=== PATIENT | female | born 2000 | race African-American/Black ===

== ENCOUNTER 2023-11-03 08:47 | Emergency (ER) | payer OTHER, SELFPAY ==
--- NOTE | ~2023-11-03 | XR_ITS ---
XR chest 1V portable DATE: 11/03/2023 11:00 INDICATION: Facial swelling TECHNIQUE: Portable upright AP chest on November 03, 2023 at 1058 hours COMPARISON: None FINDINGS: Normal heart size. No hilar or mediastinal enlargement. No pulmonary infiltrate or consolid ation, pleural effusion or pulmonary vascular congestion or pneumothorax. Included skeletal structures are unremarkable. IMPRESSION: No active cardiopulmonary disease Reviewed, dictated and finalized at location [facility].
[2023-11-03 08:51] VITALS: BP 121/76; PULSE 101; RESP 18; TEMP 36.6; O2SAT 100
--- NOTE | 2023-11-03 09:41 | ED.ALLEREA ---
HPI - Allergic Reaction General Chief complaint: Allergic Reaction Stated complaint: Allergic Reaction Time Seen by Provider: 11/03/23 09:34 History of Present Illness HPI narrative: 23-year-old female presented to the emergency department for evaluation of facial swelling. Patient states she had been drinking over a pt alcohol and patient was admitted in the hospital for alcohol withdrawal. Patient has been staying at [facility] and over the course of the last week diet she had a breakout on her face and some facial swelling. Patient denies any chest pain or shortness of breath. Patient denies any other swelling. Related Data Allergies Allergy/AdvReac Type Severity Reaction Status Date / Time No Known Allergies Allergy Verified 11/03/23 10:03 Review of Systems Review of Systems: All systems reviewed & are unremarkable except as noted in HPI and below Exam Narrative: APPEARANCE: Well appearing, no pain, no distress, well-nourished. HEAD: normocephalic, atraumatic. EYES: PERRLA/EOMI, conjunctivae clear. NOSE: Normal no drainage EARS:TMS clear with good light reflex. THROAT: Pharynx clear, no exudate. NECK: Supple. No adenopathy, no masses. RESPIRATORY: Airway patent, respirations nonlabored. Clear to auscultation bilaterally, no rales, rhonchi, wheezing. CARDIOVASCULAR: Regular rate and rhythm without murmurs rubs or gallops. ABDOMINAL: Soft, nontender, nondistended, normal bowel sounds MUSCULOSKELETAL: Moves all extremities. Strength/ROM intact, No edema, No calf tenderness. NEURO: Alert. Cranial nerves II through XII intact. Grossly intact SKIN: Patient reports facial swelling Course Vital Signs Vital signs: Vital Signs Temperature 97.8 F 11/03/23 08:51 Pulse Rate 101 H 11/03/23 08:51 Respiratory Rate 18 11/03/23 08:51 Blood Pressure 121/76 11/03/23 08:51 Pulse Oximetry 100 11/03/23 08:51 Oxygen Delivery Room Air 11/03/23 08:51 Temperature 97.9 F 11/03/23 13:16 Pulse Rate 86 11/03/23 13:16 Respiratory Rate 19 11/03/23 13:16 Blood Pressure 141/99 H 11/03/23 13:16 Pulse Oximetry 100 11/03/23 13:16 Oxygen Delivery Room Air 04/27/24 08:51 MDM - Allergic Reaction MDM Narrative Medical decision making narrative: [age] female presenting to the emergency department for evaluation for suspected allergic reaction. Patient suspects that she may be reacting to the detergent used to wash the bed sheets. Patient reports some facial swelling and tightness on the skin of her face. Patient did feel improved with treatment emergency department. Patient is afebrile but does have a leukocytosis of 13.2 and hemoglobin of 9.3 no previous hemoglobins are on file. No acute abnormalities on the patient's CMP, patient does have a mildly elevated BNP 629. Patient is already on a short course of steroids. Patient was advised to continue Benadryl p.r.n.. Differential Diagnosis Differential diagnosis: Likely anaphylaxis, allergic reaction, angioedema, adverse reaction to drug and viral enanthem Lab Data Attestation: I reviewed the patient's lab results. 11/03/23 10:24 11/03/23 10:24 Labs: Lab Results 11/03/23 Range/Units 10:24 WBC 13.2 H (4.5-10.0) K/mm3 RBC 2.65 L (4.2-5.4) M/mm3 Hgb 9.3 L (12.0-15.0) g/dL Hct 28.2 L (37.0-47.0) % MCV 106.4 H (80-100) fl MCH 35.1 H (26-34) pg MCHC 33.0 (32-36) g/dl RDW 13.4 (11.5-14.5) % Plt Count 570 H (150-375) k/mm3 MPV 9.1 (7.4-10.4) fl Immature Gran % (Auto) 0.6 H (0-0.5) % Neut % (Auto) 86.1 H (45.5-73.1) % Lymph % (Auto) 8.7 L (18.3-44.2) % [place] % (Auto) 3.0 (2.6-8.5) % Eos % (Auto) 0.5 (0-4.4) % Baso % (Auto) 1.1 (0.2-1.2) % Lymph # (Auto) 1.15 (0.9-3.2) K/mm3 [place] # (Auto) 0.4 (0.1-0.6) K/mm3 Eos # (Auto) 0.1 (0-0.3) K/mm3 Baso # (Auto) 0.1 (0.0-0.1) K/mm3 Abs Immat Gran (auto) 0.08 H (0.00-0.031) K/mm3 Absolute Neuts (auto) 11.3 H
[2023-11-03 10:25] VITALS: BP 122/88; PULSE 94; RESP 14; O2SAT 100
[2023-11-03] MEDS: methylPREDNISolone SOD SUCC 125 MG VIAL IV PUSH (10:29)
[2023-11-03 10:30] LABS: Basophils Absolute Auto 0.1 K/mm3 (0.0-0.1); Basophils Percent Auto 1.1 % (0.2-1.2); Eosinophils Absolute Auto 0.1 K/mm3 (0-0.3); Eosinophils Percent Auto 0.5 % (0-4.4); Hematocrit 28.2 % (37.0-47.0); Hemoglobin 9.3 g/dL (12.0-15.0); Immature Granulocyte Absolute 0.08 K/mm3 (0.00-0.031); Immature Granulocyte Percent A 0.6 % (0-0.5); Lymphocytes Absolute Auto 1.15 K/mm3 (0.9-3.2); Lymphocytes Percent Auto 8.7 % (18.3-44.2); Mean Corpuscular Hemoglobin 35.1 pg (26-34); Mean Corpuscular Volume 106.4 fl (80-100); Mean Platelet Volume 9.1 fl (7.4-10.4); Monocytes Absolute Auto 0.4 K/mm3 (0.1-0.6); Neutrophils Absolute Auto 11.3 K/mm3 (1.3-6.7); Neutrophils Percent Auto 86.1 % (45.5-73.1); Platelet Count Result 570 k/mm3 (150-375); Red Blood Count 2.65 M/mm3 (4.2-5.4); Red Cell Distribution Width 13.4 % (11.5-14.5); White Blood Count 13.2 K/mm3 (4.5-10.0)
[2023-11-03] MEDS: diphenhydrAMINE HCl INJ 50 MG/ML VIAL 25 MG IV PUSH (10:33)
[2023-11-03 10:42] LABS: Alanine Aminotransferase 24 U/L (6-35); Albumin Level 3.9 g/dL (3.5-5.1); Alkaline Phosphatase 86 U/L (38-126); Anion Gap 5 mmol/L (4-12); Aspartate Amino Transferase 41 U/L (14-36); Bilirubin,Total 0.3 mg/dL (0.2-1.3); Blood Urea Nitrogen 7 mg/dL (7-17); Calcium 9.6 mg/dL (8.4-10.2); Carbon Dioxide 27 mmol/L (22-30); Chloride 108 mmol/L (98-107); Estimated CRCL calculation 77 ml/min; Estimated Glomerular Filt Rate > 60; Glucose 104 mg/dL (65-110); Potassium 4.2 mmol/L (3.4-5.0); Sodium 140 mmol/L (137-145)
[2023-11-03 10:51] LABS: NT Pro B Type Natriuretic Pept 629 pg/mL (19.9-100)
[2023-11-03 10:52] LABS: Anisocytosis 1+; Hypochromasia 1+; Platelet Estimate Increased (Adequate); Schistocytes None Seen; Target Cells 1+
--- NOTE | 2023-11-03 13:12 | PC.NURSE ---
This Rn spoke with staff at [facility] and informed them that pt is being discharged and will need to be picked up
[2023-11-03 13:16] VITALS: BP 141/99; PULSE 86; RESP 19; TEMP 36.6; O2SAT 100
== END 2023-11-03 13:21 | disposition home or self-care (01) ==
PROVIDERS: Emergency Provider Emergency Medicine
DX: T78.40XA Allergy, unspecified, initial encounter (principal); X58.XXXA Exposure to other specified factors, initial encounter
CPT/HCPCS: 36415; 71045; 80053; 83880; 85025; 96374; 96375; 99284; A9270; J1200; J2919